=== PATIENT | male | born 1945 | race Caucasian/White ===

== ENCOUNTER 2020-02-24 16:42 | Inpatient (IN) | payer OTHER ==
[~2020-02-24] VITALS: Ht 182.9 cm; Wt 102.0 kg
[2020-02-24] VITALS (22 sets, daily range): BP systolic 70–98; BP diastolic 17–46
[2020-02-24] MEDS ORDERED: DEXTROSE 50% SYRINGE 50 ML IV ONE (16:52)
[2020-02-24] MEDS ORDERED: MIDAZOLAM HCL 5 MG/ML-1ML VIAL IV ONE (17:00)
[2020-02-24] MEDS ORDERED: DEXTROSE (50%) 50ML SYRG IV ONE ×2 (17:00→18:15)
[2020-02-24] MEDS ORDERED: NOREPINEPHRINE 8 MG/250ML KIT 250 ML IV ONE ×2 (17:05→22:07)
[2020-02-24] MEDS ORDERED: MIDAZOLAM HCL 1MG/1ML-2 ML VIAL ONE (17:05)
[2020-02-24] MEDS ORDERED: MIDAZOLAM DRIP 50 mg/50mL 50 ML IV ONE (17:05)
[2020-02-24] MEDS: NOREPINEPHRINE 8 MG/250ML KIT 250 ML IV SCH ×2 (17:13→23:02)
[2020-02-24] MEDS: MIDAZOLAM DRIP 50 mg/50mL 50 ML IV SCH ×3 (17:13→23:03)
[2020-02-24 17:16] LABS: Basophils # (auto) 0 10 ^3/uL (0-0.2); Basophils % (auto) 0.3 % (0.0-2.0); Eosinophils # (auto) 0 10 ^3/uL (0-0.8); Eosinophils % (auto) 0.1 % (0.0-7.0); Lymphocytes # (auto) 0.8 10 ^3/uL (0.4-5.4); Lymphocytes % (auto) 10.9 % (10.0-50.0); Monocytes # (auto) 0.5 10 ^3/uL (0-1.3); Monocytes % (auto) 6.1 % (0.0-12.0); Neutrophils % (auto) 82.6 % (37.0-80.0); White Blood Cell 7.4 10^3/uL (4.4-10.8)
[2020-02-24 17:17] LABS: Hematocrit 12.4 % (41.0-53.0); Mean Corpuscular Hemoglobin 30.5 pg (28.0-32.0); Mean Corpuscular Hgb Conc. 27.1 g/dL (32.0-36.0); Mean Corpuscular Volume 112.4 fL (80.0-100.0); Neutrophils # (auto) 6.1 10 ^3/uL (1.6-8.6)
[2020-02-24 17:19] LABS: Urine Bacteria NONE SEEN /hpf (None Seen); Urine Blood Negative /uL (Negative); Urine Hyaline Cast MOD /lpf (0 - 2); Urine Mucus FEW (None Seen); Urine Specific Gravity 1.016 (1.001-1.035); Urine WBC 11 /hpf (0 - 3)
[2020-02-24 17:22] LABS: Red Cell Distribution Width 21.5 % (11.8-14.3)
[2020-02-24 17:26] LABS: Hemoglobin 3.4 g/dL (13.5-17.5); Platelet Count (auto) 9 10^3/uL (140-450)
[2020-02-24 17:29] LABS: Albumin 1.7 g/dL (3.4-5.0); Calcium 8.3 mg/dL (8.5-10.1)
[2020-02-24 17:30] LABS: Alcohol, Urine < 3.0 mg/dL (0-10); Amphetamine Screen, Urine NEGATIVE (NEGATIVE); Barbiturate Scree,Urine NEGATIVE (NEGATIVE); Benzodiazephine Screen, Urine NEGATIVE (NEGATIVE); Cannabinoid Screen, Urine NEGATIVE (NEGATIVE); Cocaine Screen, Urine NEGATIVE (NEGATIVE); Opiate Scree,Urine POSITIVE (NEGATIVE); Phencyclidine Screen, Urine NEGATIVE (NEGATIVE)
[2020-02-24 17:34] LABS: BUN/Creatinine Ratio 32.8; Bilirubin, Total 2.6 mg/dL (0.2-1.0)
[2020-02-24 17:47] LABS: Potassium 5.8 mmol/L (3.5-5.1)
[2020-02-24] MEDS ORDERED: SODIUM BICARBONATE 8.4 % INJ 50ML VIAL IV ONE (18:00)
[2020-02-24] MEDS ORDERED: VANCOMYCIN PER PHARMACY 0 MG IV SCH (18:15)
[2020-02-24] MEDS ORDERED: InsuLIN REG 1unit/0.01ml Soln (100units/ml) SC ONE (18:15)
[2020-02-24] MEDS ORDERED: CALCIUM GLUC 4.65meq/50ml D5AE 50 ML IV ONE (18:15)
[2020-02-24] MEDS ORDERED: MORPHINE SULF INJ 2 MG/ML SYRINGE 1ML IV PRN (18:15)
[2020-02-24] MEDS ORDERED: NITROGLYCERIN 0.4 MG SL TAB SL PRN (18:15)
[2020-02-24] MEDS ORDERED: ALBUTEROL SULF 2.5 MG/0.5ML(0.5%) NEB SOLN NEB ONE (18:15)
[2020-02-24] MEDS ORDERED: SODIUM BICARBONATE 8.4% INJ 50ML SYRINGE IV ONE ×3 (18:15)
--- NOTE | 2020-02-24 18:20 | NUR ---
AT BEDSIDE. RN IS TO ADMINISTER 3 AMP BICARP PUSH. WILL WAIT X1 HR FOR FOLLOW UP ABG.
[2020-02-24] MEDS ORDERED: VANCOMYCIN 1GM/250ML 250 ML IV ONE (19:00)
[2020-02-24] MEDS: SODIUM BICARBONATE 50ML VIAL 150 ML in D5W 5% 1,000 ML IV SCH (19:06)
[2020-02-24] MEDS: PHENYLEPHRINE IV 250 ML IV SCH ×3 (19:06→23:02)
[2020-02-24 19:11] LABS: Lactate Dehydrogenase 187 U/L (87-241)
[2020-02-24 19:15] LABS: CRP High Sensitivity > 19.0 mg/dL (< 0.3)
--- NOTE | 2020-02-24 21:43 | NUR ---
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 Patient transfered to bed, connected to mechanical ventilator by therapist, SUJEYM at bedside. Patient connected to ICU monitoring, weighed by renuka, oriented to [facility], primary RN, unit, ventilator and sedation. NOTE: PT TO UNIT ON LEVOPHED GTT 30 MCG/MIN, AND PHENYLEPHRINE AT 180 MCG/MIN, VERSED 10 MG/HR. PT OBSERVED TO BE BUCKING VENT. SEDATION INCREASED SEE IV SPREADSHEET. OGT IN PLACE. CONNECTED TO LIS. 1300 ML BLACK COFFEE GROUND DRAINAGE OBTAINED WITHIN FIRST 30 MIN. PT WITH ORAL BLEEDING, AND BLEEDING FROM NARES. R. FEM TLC IN PLACE. ALL PORTS PATENT. L. EJ IN PLACE WITH D5 WITH THREE AMPS NAHCO3 INFUSING AT 100 ML/HR. 20G IV TO L. HAND, 20 G IV TO R. FOOT. ALL SITES B&P. PT WITH BRUISING OBSERVED TO L. CHEST AND CONTRERAS UPPER EXTREMITIES. VIRGEN TO GRAVITY DRAINING CLEAR YELLOW URINE. BED IN LOWEST LOCKED POSITION. SIDE RAILS UP X 2. PT IN FULL VIEW OF RN STATION. PT ON RESPIRATORY PRECUATION FOR RULE OUT COVID. PROPER PPE IN USE. WILL CONTINUE TO MONITOR.
[2020-02-24] MEDS: PANTOPRAZOLE 40 MG/10 ML VIAL INJ IV SCH (22:00)
[2020-02-25] VITALS (109 sets, daily range): BP systolic 93–157; BP diastolic 48–85
[2020-02-25] MEDS: PHENYLEPHRINE IV 250 ML IV SCH (01:51)
[2020-02-25] MEDS: NOREPINEPHRINE 8 MG/250ML KIT 250 ML IV SCH ×4 (02:30→20:00)
--- NOTE | 2020-02-25 04:30 | NUR ---
FAMILY CONTACT PT ABIGAIL CALLED UNIT. PASSWORD ESTABLISHED. UPDATED ABIGAIL REGARDING PT CONDITION AND PLAN OF CARE. PT MOSTLY GUINEAN SPEAKING. GUINEAN SPEAKING RN ALSO SPOKE WITH ABIGAIL. ALL QUESTIONS AND CONCERNS ADDRESSED.
--- NOTE | 2020-02-25 05:00 | NUR ---
Patient bathe/linen change Patient given complete bath. Skin integrity assessed for any changes. Linens changed. Patient repositioned for comfort.
[2020-02-25] MEDS: SODIUM BICARBONATE 50ML VIAL 150 ML in D5W 5% 1,000 ML IV SCH (05:45)
--- NOTE | 2020-02-25 07:05 | NUR ---
REPORT RECEIVED FROM DRAPERY EXAMINER NURSE. PATIENT RESTING IN BED INTUBATED AND SEDATED. RESPIRATIONS EVEN BUT LABORED DUE TO HIGH RESPIRATORY RATE ON VENTILATOR. BLEEDING NOTED TO BE COMING FROM MOUTH AND GAUZE PLACED IN BILATERAL NARES WITH NOTED CLOTS. BED IN LOW POSITION. WILL CONTINUE TO MONITOR.
[2020-02-25] MEDS: MIDAZOLAM DRIP 50 mg/50mL 50 ML IV SCH (08:10)
[2020-02-25 08:34] LABS: Basophils # (auto) 0 10 ^3/uL (0-0.2); Eosinophils # (auto) 0 10 ^3/uL (0-0.8); Hematocrit 25.7 % (41.0-53.0); Lymphocytes # (auto) 0.4 10 ^3/uL (0.4-5.4); Lymphocytes % (auto) 8.3 % (10.0-50.0); Mean Corpuscular Hemoglobin 30.4 pg (28.0-32.0); Mean Corpuscular Hgb Conc. 34.8 g/dL (32.0-36.0); Mean Corpuscular Volume 87.4 fL (80.0-100.0); Monocytes # (auto) 0.1 10 ^3/uL (0-1.3); Monocytes % (auto) 2.7 % (0.0-12.0); Nucleated Red Blood Cells % 0.2 %; Red Blood Cells 2.94 10^6/uL (4.5-5.90); Red Cell Distribution Width 15.6 % (11.8-14.3); White Blood Cell 4.6 10^3/uL (4.4-10.8)
[2020-02-25] MEDS: cefTRIAXone 1GM/50ML D5W 50 ML IV SCH (08:34)
[2020-02-25 08:37] LABS: Platelet Count (auto) 10 10^3/uL (140-450)
--- NOTE | 2020-02-25 08:40 | NUR ---
DR LIND AT BEDSIDE TO ASSESS PATIENT AND DISCUSS PLAN OF CARE. PER MD TRANSFUSE 2 UNITS PLATELETS AND REDRAW LABS WHEN COMPLETED. MD ADJUSTED VENTILATOR SETTINGS, ORDERS NOTED IN CHART. PER MD HEMATOLOGY CONSULT DUE TO THROMBOCYTOPENIA. ALL ORDERS PLACED.
--- NOTE | 2020-02-25 08:45 | NUR ---
INSECTICIDE SPRAYER AT BEDSIDE
[2020-02-25 08:54] LABS: Albumin 2.1 g/dL (3.4-5.0); Calcium 7.6 mg/dL (8.5-10.1); Potassium 4.2 mmol/L (3.5-5.1)
[2020-02-25 08:58] LABS: BUN/Creatinine Ratio 39.8; Bilirubin, Total 3.6 mg/dL (0.2-1.0); Total Protein 5.5 g/dL (6.4-8.2)
--- NOTE | 2020-02-25 09:13 | NUR ---
DR BUCIO AT BEDSIDE TO ASSESS PATIENT AND DISCUSS PLAN OF CARE. PER MD MONITOR AT THIS TIME AND TRANSFUSE ORDERED. PER MD START PATIENT ON OCTREOTIDE DRIP, ORDERS NOTED. MD SPOKE TO NIECE WITH ON PHONE WELL, NIECE TRANSLATED FOR . MD DISCUSSED PLAN OF CARE AND CRITICAL STATE OF PATIENT. ALL QUESTIONS AND CONCERNS ADDRESSED AT THIS TIME.
[2020-02-25] MEDS ORDERED: OCTREOTIDE ACETATE 100 MCG in SODIUM CHL 0.9% 50 ML IV ONE (09:15)
[2020-02-25] MEDS ORDERED: PROPOFOL 100 ML IV SCH (09:23)
[2020-02-25 09:42] LABS: INR 1.18 (0.9-1.15)
--- NOTE | 2020-02-25 09:45 | NUR ---
PATIENT TRANSFERRED TO CT VIA BED CONNECTED TO PORTABLE VENTILATOR AND MONITOR. NO SIGNS OF DISTRESS NOTED AT THIS TIME. VITAL SIGNS STABLE. ACCOMPANIED BY RADIOLOGY NURSE.
--- NOTE | 2020-02-25 10:07 | NUR ---
PATIENT BACK FROM CT CONNECTED TO BEDSIDE MONITORS AND VENTILATOR. VITAL SIGNS STABLE. WILL CONTINUE TO MONITOR.
[2020-02-25] MEDS: PANTOPRAZOLE 40 MG/10 ML VIAL INJ IV SCH ×2 (10:29→22:00)
[2020-02-25] MEDS: fentaNYL Drip 2500mCg/250mlNS 250 ML IV SCH (10:38)
--- NOTE | 2020-02-25 10:41 | NUR ---
DR SALAZAR AT BEDSIDE TO ASSESS PATIENT AND DISCUSS PLAN OF CARE. ALL ORDERS NOTED IN CHART.
[2020-02-25] MEDS: OCTREOTIDE ACETATE 500 MCG in SODIUM CHL 0.9% 99 ML IV SCH ×2 (10:53→20:00)
--- NOTE | 2020-02-25 11:25 | NUR ---
PAGED DR SALAZAR IN REGARDS TO PATIENT BLOOD GLUCOSE LEVELS BEING ELEVATED AND NO BLOOD SUGAR CHECKS. AWAITING CALL BACK.
--- NOTE | 2020-02-25 11:26 | NUR ---
SPOKE TO DR SALAZAR ABOUT BLOOD GLUCOSE LEVELS. PER MD START PATIENT ON MILD SLIDING SCALE Q6H. ALL ORDERS NOTED IN CHART.
[2020-02-25] MEDS ORDERED: DEXTROSE (50%) 50ML SYRG IV PRN (11:30)
[2020-02-25] MEDS: ACCU-CHEK COMFORT CURVE STRIP VI SCH ×2 (11:41→18:00)
[2020-02-25] MEDS: InsuLIN REG 1unit/0.01ml Soln (100units/ml) SC SCH ×2 (11:41→18:00)
--- NOTE | 2020-02-25 12:30 | NUR ---
SPOKE TO DR LIND, PER MD STOP SODIUM BICARBONATE DRIP. ORDERS NOTED IN CHART.
[2020-02-25] MEDS ORDERED: VANCOMYCIN 1GM/250ML 250 ML IV ONE (13:00)
--- NOTE | 2020-02-25 13:06 | NUR ---
MD AT BEDSIDE DR HARTMANN, HEMATOLOGY, AT BEDSIDE TO EXAMINE PATIENT. UPDATED ON PATIENT STATUS AND RECENT LABS. PER MD REDRAW CBC AFTER PLATELETS COMPLETED. ALL ORDERS NOTED IN CHART.
[2020-02-25] MEDS ORDERED: methylPREDNISolone SOD SUCC 125 MG/2 ML VL IV SCH (14:00)
[2020-02-25] MEDS: methylPREDNISolone SOD SUCC 125 MG/2 ML VL IV SCH ×2 (14:00→22:00)
--- NOTE | 2020-02-25 14:52 | NUR ---
PAGED DR KOHLER FOR CONSULT. AWAITING CALL BACK.
--- NOTE | 2020-02-25 15:21 | NUR ---
DR KOHLER CALLED AND REVIEWED PATIENT HISTORY AND CURRENT LAB VALUES. PER MD START PATIENT ON ALBUMIN 25% 100ML Q8HR FOR 24HOURS, ADMINISTER 20MG LASIX IVP X1 DOSE ONCE CURRENT PLATELETS COMPLETED, ADMINISTER 40MG LASIX IVP X1 DOSE IF PATIENT URINE OUTPUT HOURLY DECREASES TO LESS THAN 30ML/HR. SEND URINE SODIUM AND CREATININE. PER MD NO MAINTENANCE FLUIDS AT THIS TIME. ALL ORDERS NOTED IN CHART.
[2020-02-25] MEDS ORDERED: FUROSEMIDE 40 MG/4 ML VIAL IV PRN (15:30)
[2020-02-25] MEDS: ALBUMIN 25% 100 ML IV SCH (16:36)
[2020-02-25] MEDS ORDERED: FUROSEMIDE 20 MG/2 ML VIAL IV NR (17:00)
[2020-02-25 17:54] LABS: Creatinine, Urine 35 mg/dL (30.0-125.0); Sodium Urine 15 mmol/L (40-220)
--- NOTE | 2020-02-25 19:30 | NUR ---
Opening Shift Note: Patient is vented/sedated. ET size 8.0/22 @ lip. Settings: AC rate 24, vT 470, PEEP 5, and FiO2 40%. Neuro: pupils are 2/3 mm in size/reactive to light; flaccid extremities; + cough/gag. Cardio: Afib 110s-150s; SBP 100s-130s; +2 pitting edema in left arm and BLE; all pulses palpable. Blood present in bilateral nostrils and mouth. GI: left nare NGT to LIS: dark red output; distended soft abdomen. : ballard inserted on 02/24/20 for strict I/O: yellow/sed/slight hematuria. Skin: generalized bruising present; no open wounds noted. IVs: left hand 20 g IID inserted on 02/24/20; left 20 g EJ to KVO inserted on 02/24/20; right femoral TLC running Levophed @ 24; Fentanyl @ 50; Sandostatin @ 10 ml/hr inserted on 02/24/20. Pending a nephrology consultation for CKD/TRISHA/hyperkalemia. CBC to be drawn at 1999 to determine possible blood product transfusion. Will continue to round/reposition/perform oral care prn.
[2020-02-25 20:04] LABS: Basophils # (auto) 0 10 ^3/uL (0-0.2); Eosinophils # (auto) 0 10 ^3/uL (0-0.8); Lymphocytes # (auto) 0.1 10 ^3/uL (0.4-5.4); Monocytes # (auto) 0.1 10 ^3/uL (0-1.3); Neutrophils # (auto) 4.7 10 ^3/uL (1.6-8.6); Red Cell Distribution Width 16.7 % (11.8-14.3)
[2020-02-25 20:05] LABS: Eosinophils % (auto) 0.7 % (0.0-7.0); Hemoglobin 7.7 g/dL (13.5-17.5); Lymphocytes % (auto) 2.3 % (10.0-50.0); Mean Corpuscular Hemoglobin 30.7 pg (28.0-32.0); Mean Corpuscular Hgb Conc. 34.9 g/dL (32.0-36.0); Mean Corpuscular Volume 87.9 fL (80.0-100.0); Monocytes % (auto) 2.7 % (0.0-12.0); Neutrophils % (auto) 94.3 % (37.0-80.0); Nucleated Red Blood Cells % 0.2 %; Platelet Count (auto) 60 10^3/uL (140-450)
--- NOTE | 2020-02-25 21:00 | NUR ---
Page sent to production or plant engineer hospitalist: Current hgb is 7.7 from 9.0; platelet count is 60 from 10. HR sustaining Afib new onset in 110s-150s. New orders received for cardiology consultation in AM; metoprolol prn 5 mg Q6H prn for HR greater than 140. Labs already ordered for AM.
[2020-02-26] VITALS (105 sets, daily range): BP systolic 85–150; BP diastolic 49–86
[2020-02-26] MEDS: InsuLIN REG 1unit/0.01ml Soln (100units/ml) SC SCH ×4 (00:45→19:41)
[2020-02-26] MEDS: PHENYLEPHRINE IV 250 ML IV SCH ×2 (03:25→11:45)
--- NOTE | 2020-02-26 04:00 | NUR ---
Patient bathe/linen change Patient given complete CHG bath. Skin integrity assessed for any changes. Linens and gown changed. Patient repositioned for comfort.
[2020-02-26 04:58] LABS: Basophils # (auto) 0 10 ^3/uL (0-0.2); Basophils % (auto) 0.1 % (0.0-2.0); Eosinophils # (auto) 0 10 ^3/uL (0-0.8); Lymphocytes # (auto) 0.2 10 ^3/uL (0.4-5.4); Lymphocytes % (auto) 5.7 % (10.0-50.0); Monocytes # (auto) 0.1 10 ^3/uL (0-1.3); Neutrophils # (auto) 3.2 10 ^3/uL (1.6-8.6)
[2020-02-26 05:02] LABS: Eosinophils % (auto) 0.2 % (0.0-7.0); Hematocrit 20.1 % (41.0-53.0); Mean Corpuscular Hemoglobin 30.5 pg (28.0-32.0); Mean Corpuscular Hgb Conc. 34.2 g/dL (32.0-36.0); Mean Corpuscular Volume 89.2 fL (80.0-100.0); Nucleated Red Blood Cells % 0.1 %; Platelet Count (auto) 44 10^3/uL (140-450); Red Blood Cells 2.26 10^6/uL (4.5-5.90); Red Cell Distribution Width 17.3 % (11.8-14.3); White Blood Cell 3.5 10^3/uL (4.4-10.8)
[2020-02-26] MEDS: OCTREOTIDE ACETATE 500 MCG in SODIUM CHL 0.9% 99 ML IV SCH ×2 (05:07→16:57)
[2020-02-26] MEDS: ACCU-CHEK COMFORT CURVE STRIP VI SCH ×4 (05:08→19:41)
[2020-02-26 05:12] LABS: Albumin 2.5 g/dL (3.4-5.0); Calcium 7.3 mg/dL (8.5-10.1); Magnesium 2.8 mg/dL (1.6-2.6); Potassium 3.7 mmol/L (3.5-5.1)
[2020-02-26 05:18] LABS: BUN/Creatinine Ratio 37.8; Bilirubin, Total 3.6 mg/dL (0.2-1.0); Total Protein 5.7 g/dL (6.4-8.2)
[2020-02-26 05:40] LABS: Hemoglobin 6.9 g/dL (13.5-17.5)
[2020-02-26 05:43] LABS: INR 1.18 (0.9-1.15); Partial Thromboplastin Time 30.2 sec (23.64-32.05)
--- NOTE | 2020-02-26 06:00 | NUR ---
Page sent to data power consultant hospitalist in regards to low hgb 6.9. New order received from Kaylee data power consultant hospitalist for one unit of PRBCs.
--- NOTE | 2020-02-26 07:37 | NUR ---
DR YIN AT BEDSIDE TO ASSESS PATIENT. ALL ORDERS NOTED IN CHART.
[2020-02-26] MEDS: ALBUMIN 25% 100 ML IV SCH ×2 (08:04)
[2020-02-26] MEDS: fentaNYL Drip 2500mCg/250mlNS 250 ML IV SCH ×2 (09:23→21:55)
--- NOTE | 2020-02-26 09:42 | NUR ---
DR BUCIO AT BEDSIDE TO ASSESS PATIENT AND DISCUSS PLAN OF CARE. MD MADE AWARE OF PATIENTS BLOOD DRAINING FRO NARES AND ORALLY WELL DARK BLACK TO DARK RED COMING FROM NGT. REVIEWED LABS WITH MD. PER MD ADMINISTER I UNIT PLATELETS. ALL ORDER NOTED IN CHART.
[2020-02-26] MEDS: methylPREDNISolone SOD SUCC 125 MG/2 ML VL IV SCH ×2 (09:57→22:21)
[2020-02-26] MEDS: PANTOPRAZOLE 40 MG/10 ML VIAL INJ IV SCH ×2 (09:57→22:20)
[2020-02-26] MEDS: cefTRIAXone 1GM/50ML D5W 50 ML IV SCH (09:58)
--- NOTE | 2020-02-26 10:08 | NUR ---
SALVAGE DIVER AT BEDSIDE.
--- NOTE | 2020-02-26 10:43 | NUR ---
UNIT OF PRBC STARTED. VITAL SIGNS STABLE WITH NO NOTED ADVERSE REACTIONS. WILL CONTINUE TO MONITOR.
--- NOTE | 2020-02-26 10:45 | NUR ---
DR ILND AT BEDSIDE TO ASSESS PATIENT AND DISCUSS PLAN OF CARE. PER MD SEDATION VACATION, WHICH SEDATIONS ARE ALL OFF AT THIS TIME. PER MD CPAP WHEN AWAKE.
--- NOTE | 2020-02-26 10:45 | NUR ---
ELECTROENCEPHALOGRAM EEG COMPLETED AT BEDSIDE. PRIMARY RN MIHAI RING.
--- NOTE | 2020-02-26 12:10 | NUR ---
WOUND CARE NOTE: IN TO SEE PATIENT AT THIS TIME PER WOUND CARE CONSULT REQUEST. PATIENT WAS ADMITTED TO [facility] WITH DIAGNOSIS OF ACUTE RESPIRATORY FAILURE. CURRENT LEA SCORE IS 12. HE IS INTUBATED, SEDATED. PATIENT HAS NO CURRENT WOUND/SKIN INTEGRITY ISSUES AT THIS TIME. SKIN/WOUND CARE PLAN IMPLEMENTED. PATIENT WOULD BENEFIT FROM FREQUENT TURN SCHEDULE Q 2 HOURS, PRN CONDITION PERMITS, WITH PRESSURE REDISTRIBUTION USING PILLOWS/WEDGES, BID/PRN APPLICATION WITH MOISTURE BARRIER CREAM, OPTIFOAM GENTLE SACRAL DRESSING PREVENTATIVE, SKIN/WOUND CARE PLAN, DIETARY CONSULT FOR LOW LEA, CONTINUED MONITORING BY WOUND CARE TEAM.
[2020-02-26] MEDS ORDERED: PHYTONADIONE (VIT K)10 MG/ML 1ML VIAL SUBCUT ONE (12:15)
--- NOTE | 2020-02-26 12:19 | NUR ---
DR SALAZAR AT BEDSIDE TO ASSESS PATIENT AND DISCUSS PLAN OF CARE. PER MD START PATIENT ON VITAMIN K SQ DAILY. ALL ORDERS NOTED IN CHART. Addendum: 02/26/20 at 1236 by Akosua Rodriguez RN MD MADE AWARE OF PATIENTS ELEVATED BLOOD SUGARS. PER MD INCREASE SLIDING SCALE TO MODERATE
[2020-02-26] MEDS ORDERED: DEXTROSE (50%) 50ML SYRG IV PRN ×2 (12:30→18:15)
[2020-02-26] MEDS ORDERED: VANCOMYCIN 1GM/250ML 250 ML IV ONE (13:00)
--- NOTE | 2020-02-26 13:49 | NUR ---
DR HARTMANN AT BEDSIDE TO ASSESS PATIENT AND DISCUSS PLAN OF CARE. ALL ORDERS NOTED IN CHART.
[2020-02-26] MEDS ORDERED: FUROSEMIDE 20 MG/2 ML VIAL IV ONE (14:00)
--- NOTE | 2020-02-26 14:47 | NUR ---
DR PARRA AT BEDSIDE TO ASSESS PATIENT AND DISCUSS PLAN OF CARE. MD MADE AWARE OF ELEVATED TROPONIN. NO NEW ORDERS AT THIS TIME.
--- NOTE | 2020-02-26 15:10 | NUR ---
Respiratory note: INCREASED PT'S FIO2 TO 100% PT KEEPS DESATURATING. RN AT BEDSIDE AND AWARE OF CHANGES.
[2020-02-26 17:23] LABS: Basophils # (auto) 0 10 ^3/uL (0-0.2); Eosinophils # (auto) 0 10 ^3/uL (0-0.8); Hematocrit 22.5 % (41.0-53.0); Hemoglobin 7.6 g/dL (13.5-17.5); Mean Corpuscular Hemoglobin 29.5 pg (28.0-32.0); Monocytes # (auto) 0.1 10 ^3/uL (0-1.3)
[2020-02-26 17:25] LABS: Basophils % (auto) 0.3 % (0.0-2.0); Lymphocytes # (auto) 0.3 10 ^3/uL (0.4-5.4); Lymphocytes % (auto) 11.9 % (10.0-50.0); Mean Corpuscular Hgb Conc. 33.7 g/dL (32.0-36.0); Mean Corpuscular Volume 87.5 fL (80.0-100.0); Monocytes % (auto) 6.6 % (0.0-12.0); Neutrophils # (auto) 1.7 10 ^3/uL (1.6-8.6); Neutrophils % (auto) 80.2 % (37.0-80.0); Nucleated Red Blood Cells % 0.5 %; Platelet Count (auto) 31 10^3/uL (140-450); Red Blood Cells 2.57 10^6/uL (4.5-5.90); Red Cell Distribution Width 17.3 % (11.8-14.3); White Blood Cell 2.1 10^3/uL (4.4-10.8)
--- NOTE | 2020-02-26 17:58 | NUR ---
SPOKE TO DR CYR WHO WAS ON ICU UNIT. MD EVALUATED LAB RESULTS AND PATIENT. PER MD ADMINISTER 1 UNIT PLATELETS. ALL ORDERS NOTED IN CHART.
[2020-02-26] MEDS ORDERED: ACCU-CHEK COMFORT CURVE STRIP VI SCH (18:00)
[2020-02-26] MEDS ORDERED: InsuLIN REG 1unit/0.01ml Soln (100units/ml) SC SCH (18:00)
--- NOTE | 2020-02-26 18:09 | NUR ---
PAGED DR CYR TO REPORT PATIENTS ELEVATED BLOOD SUGAR OF 406 WITH REPEAT OF 401. AWAITING CALL BACK.
[2020-02-26] MEDS ORDERED: INSULIN LANTUS (GLARGINE) 1 /0.01ml (100units/ml) SC ONE (18:15)
[2020-02-26] MEDS ORDERED: InsuLIN REG 1unit/0.01ml Soln (100units/ml) IV ONE (18:15)
--- NOTE | 2020-02-26 18:15 | NUR ---
SPOKE TO DR CYR TO INFORM OF ELEVATED BLOOD SUGARS. PER MD ADMINISTER LANTUS 15UNITS SQ BID FIRST DOSE NOW, REGULAR INSULIN 10 [address] NOW [address] PL[address] PATIENT ON Q4H BLOOD SUGAR CHECKS. ALL ORDERS NOTED IN CHART.
--- NOTE | 2020-02-26 20:00 | NUR ---
OPEN ASSUMED CARE OF MALE PT ORALLY INTUBATED. PT OFF SEDATION AT THIS TIME. OPENS EYES DURING TURNING OTHERWISE NON RESPONSIVE. AFIB ON HAND BANDER. LEVOPHED GTT INFUSING AT 2 MCG/MIN. OGT IN PLACE TO LIS DRAINING DARK RED TINGED COFFEE GROUND DRAINAGE. PLACEMENT VERIFIED. PT ON SANDOSTATIN GTT AT 50 MCG/HR. PT WITH SOME ORAL BLEEDING. GENTLE ORAL CARE PROVIDED. PT WITH BRUISING TO CONTRERAS UPPER EXTREMITIES AND L. LATERA CHEST. NO SKIN BREAKS OBSERVED. L. EJ 20 G B&P. R. FEM TLC IN PLACE ALL PORTS PATENT. 20 G IV TO L. HAND S/L. ALL DRESSINGS CDI. VIRGEN TO GRAVITY DRAINING STRAW COLORED URINE. CONTRERAS SCD'S IN PLACE. NO INDICATION OF PAIN OBSERVED. PILLOWS USED TO OFFLOAD BONY PROMINENCES AND CONTRERAS HEELS. HOB ELEVATED 40 DEGREES. BED IN LOWEST LOCKED POSITION. SIDE RAILS UP X 2. PT IN FULL VIEW OF RN STATION. WILL CONTINUE TO MONITOR.
--- NOTE | 2020-02-26 20:30 | NUR ---
FAMILY CALL PT NIECE CALLED WITH PT'S FOR UPDATE ON PT CONDITION. AFTER PASSWORD FOR PHONE GIVEN. UPDATE PROVIDED. ALL QUESTIONS AND CONCERNS ADDRESSED.
[2020-02-27] VITALS (109 sets, daily range): BP systolic 93–127; BP diastolic 55–84
[2020-02-27] MEDS: ACCU-CHEK COMFORT CURVE STRIP VI SCH ×6 (00:19→20:09)
[2020-02-27] MEDS: InsuLIN REG 1unit/0.01ml Soln (100units/ml) SC SCH ×6 (00:20→20:09)
--- NOTE | 2020-02-27 03:00 | NUR ---
Patient bathe/linen change Patient given complete bath. Skin integrity assessed for any changes. Linens changed. Patient repositioned for comfort.
[2020-02-27] MEDS: OCTREOTIDE ACETATE 500 MCG in SODIUM CHL 0.9% 99 ML IV SCH ×3 (03:20→20:10)
[2020-02-27 04:39] LABS: Basophils # (auto) 0 10 ^3/uL (0-0.2); Eosinophils # (auto) 0 10 ^3/uL (0-0.8); Lymphocytes # (auto) 0.3 10 ^3/uL (0.4-5.4); Monocytes # (auto) 0.1 10 ^3/uL (0-1.3); Neutrophils # (auto) 1.4 10 ^3/uL (1.6-8.6)
[2020-02-27 04:41] LABS: Basophils % (auto) 0.4 % (0.0-2.0); Eosinophils % (auto) 0.7 % (0.0-7.0); Hematocrit 21.1 % (41.0-53.0); Hemoglobin 7.2 g/dL (13.5-17.5); Lymphocytes % (auto) 15.1 % (10.0-50.0); Mean Corpuscular Hemoglobin 29.9 pg (28.0-32.0); Mean Corpuscular Hgb Conc. 34.2 g/dL (32.0-36.0); Mean Corpuscular Volume 87.5 fL (80.0-100.0); Monocytes % (auto) 5.3 % (0.0-12.0); Neutrophils % (auto) 78.5 % (37.0-80.0); Nucleated Red Blood Cells % 2.4 %; Platelet Count (auto) 36 10^3/uL (140-450); Red Blood Cells 2.42 10^6/uL (4.5-5.90); Red Cell Distribution Width 17.5 % (11.8-14.3)
[2020-02-27 04:44] LABS: White Blood Cell 1.8 10^3/uL (4.4-10.8)
[2020-02-27 05:01] LABS: Potassium 3.5 mmol/L (3.5-5.1)
[2020-02-27 05:05] LABS: INR 1.18 (0.9-1.15)
[2020-02-27 05:07] LABS: Albumin 2.4 g/dL (3.4-5.0); BUN/Creatinine Ratio 44.7; Bilirubin, Total 2.6 mg/dL (0.2-1.0); Calcium 7.8 mg/dL (8.5-10.1); Total Protein 5.9 g/dL (6.4-8.2)
[2020-02-27] MEDS: INSULIN LANTUS (GLARGINE) 1 /0.01ml (100units/ml) SC SCH ×2 (06:16→20:12)
--- NOTE | 2020-02-27 07:00 | NUR ---
REPORT RECEIVED FROM SCHOOL BUS AIDE NURSE. PATIENT RESTING IN BED INTUBATED AND LIGHTLY SEDATED. RESPIRATIONS EVEN AND UNLABORED. NO SIGNS OF ACUTE DISTRESS NOTED. BED IN LOW POSITION. WILL CONTINUE TO MONITOR.
--- NOTE | 2020-02-27 07:57 | NUR ---
DR PARRA AT BEDSIDE TO ASSESS PATIENT AND DISCUSS PLAN OF CARE. PER MD WILL SIGN OFF CASE AT THIS TIME. RECONSULT IF NEEDED.
[2020-02-27] MEDS: cefTRIAXone 1GM/50ML D5W 50 ML IV SCH (08:25)
[2020-02-27] MEDS ORDERED: PHYTONADIONE (VIT K)10 MG/ML 1ML VIAL SUBCUT SCH (10:00)
[2020-02-27] MEDS: methylPREDNISolone SOD SUCC 125 MG/2 ML VL IV SCH ×2 (10:21→20:11)
[2020-02-27] MEDS: PANTOPRAZOLE 40 MG/10 ML VIAL INJ IV SCH ×2 (10:21→20:10)
--- NOTE | 2020-02-27 11:36 | NUR ---
DR BUCIO AT BEDSIDE TO ASSESS PATIENT AND DISCUSS PLAN OF CARE. PER MD ADMINISTER 1 UNIT OF PRBC. ALL ORDERS NOTED IN CHART.
[2020-02-27] MEDS ORDERED: VANCOMYCIN 1GM/250ML 250 ML IV ONE (12:00)
--- NOTE | 2020-02-27 12:00 | NUR ---
DR BEAVERS AT BEDSIDE TO ASSESS PATIENT AND DISCUSS PLAN OF CARE.ALL ORDERS NOTED IN CHART. RESPIRATORY THERAPIST MADE AWARE OF VENTILATOR CHANGES ORDERED BY .
--- NOTE | 2020-02-27 12:01 | NUR ---
Nutrition Assessment/consult Notes please see attached link for complete assessment Est Energy needs ABW 92 [id number] kcals (23-25 kcal/kgBW),Est Protein needs: 73-92 gms/day (0.8-1.0 gm/kgBW) Will continue to monitor and reassess prn. Addendum: 02/27/20 at [address] Amended: Links added.
--- NOTE | 2020-02-27 13:00 | NUR ---
DR Jessica DARBY AT BEDSIDE TO ASSESS PATIENT AND DISCUSS PLAN OF CARE. ALL ORDERS NOTED IN CHART.
--- NOTE | 2020-02-27 13:28 | NUR ---
STARTED UNIT OF PRBC. VITAL SIGNS STABLE, WILL CONTINUE TO MONITOR.
--- NOTE | 2020-02-27 16:00 | NUR ---
TRANSFUSION COMPLETED WITH NO NOTED ADVERSE REACTIONS.
[2020-02-27] MEDS: fentaNYL Drip 2500mCg/250mlNS 250 ML IV SCH (16:24)
[2020-02-27] MEDS: NOREPINEPHRINE 8 MG/250ML KIT 250 ML IV SCH (17:15)
--- NOTE | 2020-02-27 19:45 | NUR ---
Opening Shift Note: Patient is vented/sedated. ET size 8.0/22 @ lip. Settings: AC rate 18, vT 470, PEEP 8, and FiO2 60%. Neuro: pupils are 3 mm in size/reactive to light; flaccid extremities; + cough/gag. Cardio: Afib 50s-70s; SBP 100s-120s; +2 pitting edema in left arm and BLE; all pulses palpable but weak. Blood present mouth. GI: left nare NGT to LIS: dark red output; distended soft abdomen. : ballard inserted on 02/24/20 for strict I/O: yellow/sed/slight hematuria. Skin: generalized bruising present; no open wounds noted. IVs: left hand 20 g IID inserted on 02/24/20; left 20 g EJ to KVO inserted on 02/24/20; right femoral TLC running Sandostatin @ 10 ml/hr inserted on 02/24/20. CBC to be drawn at 2000 to determine possible blood product transfusion. Will continue to round/reposition/perform oral care prn.
[2020-02-27 20:35] LABS: Basophils # (auto) 0 10 ^3/uL (0-0.2); Eosinophils # (auto) 0 10 ^3/uL (0-0.8); Lymphocytes # (auto) 0.3 10 ^3/uL (0.4-5.4); Mean Corpuscular Volume 88.1 fL (80.0-100.0); Monocytes # (auto) 0.1 10 ^3/uL (0-1.3); Platelet Count (auto) 33 10^3/uL (140-450); White Blood Cell 2.1 10^3/uL (4.4-10.8)
[2020-02-27 20:38] LABS: Basophils % (auto) 0.3 % (0.0-2.0); Hematocrit 23.7 % (41.0-53.0); Mean Corpuscular Hemoglobin 29.8 pg (28.0-32.0); Mean Corpuscular Hgb Conc. 33.8 g/dL (32.0-36.0); Monocytes % (auto) 3.5 % (0.0-12.0); Neutrophils # (auto) 1.7 10 ^3/uL (1.6-8.6); Neutrophils % (auto) 82.2 % (37.0-80.0); Nucleated Red Blood Cells % 0.2 %; Red Blood Cells 2.69 10^6/uL (4.5-5.90)
--- NOTE | 2020-02-27 22:00 | NUR ---
RT paged related to patient biting on ET tube. Bite block pichadro placed by RT to prevent tube biting.
[2020-02-28] VITALS (102 sets, daily range): BP systolic 100–174; BP diastolic 61–101
[2020-02-28] MEDS: InsuLIN REG 1unit/0.01ml Soln (100units/ml) SC SCH ×6 (00:21→20:18)
[2020-02-28] MEDS: fentaNYL Drip 2500mCg/250mlNS 250 ML IV SCH (03:00)
--- NOTE | 2020-02-28 03:00 | NUR ---
Fentanyl restarted related to patient's high RR, HR, and blood pressure. Patient is also not pulling volume on ventilator. RR in low 30s, BP 174/100, and HR AFib RVR 130s-150s sustaining. Metoprolol prn given per order and Fentanyl restarted at 25 mcg per order. Will continue to monitor patient status.
[2020-02-28] MEDS: METOPROLOL TARTRATE 1MG/1ML-5ML VIAL IV PRN (03:06)
[2020-02-28] MEDS: ACCU-CHEK COMFORT CURVE STRIP VI SCH ×6 (03:33→20:00)
--- NOTE | 2020-02-28 03:56 | NUR ---
Patient bathe/linen change Patient given complete CHG bath. Skin integrity assessed for any changes. Linens and gown changed. All tubing changed per 72 hour protocol. Patient repositioned for comfort.
[2020-02-28 04:10] LABS: BUN/Creatinine Ratio 50.2; Calcium 8.4 mg/dL (8.5-10.1)
[2020-02-28 05:40] LABS: Basophils # (auto) 0 10 ^3/uL (0-0.2); Eosinophils # (auto) 0 10 ^3/uL (0-0.8); Lymphocytes # (auto) 0.3 10 ^3/uL (0.4-5.4); Mean Corpuscular Hgb Conc. 33.8 g/dL (32.0-36.0); Mean Corpuscular Volume 88.3 fL (80.0-100.0); Monocytes # (auto) 0.1 10 ^3/uL (0-1.3); Neutrophils # (auto) 2.3 10 ^3/uL (1.6-8.6); White Blood Cell 2.7 10^3/uL (4.4-10.8)
[2020-02-28 05:42] LABS: Basophils % (auto) 0.3 % (0.0-2.0); Hemoglobin 9.5 g/dL (13.5-17.5); Mean Corpuscular Hemoglobin 29.8 pg (28.0-32.0); Monocytes % (auto) 2.7 % (0.0-12.0); Nucleated Red Blood Cells % 1.3 %; Platelet Count (auto) 25 10^3/uL (140-450); Red Blood Cells 3.17 10^6/uL (4.5-5.90)
[2020-02-28] MEDS: INSULIN LANTUS (GLARGINE) 1 /0.01ml (100units/ml) SC SCH ×2 (06:06→20:34)
--- NOTE | 2020-02-28 08:00 | NUR ---
AM ASSESSMENT COMPLETED. ORAL CARE RENDERED, REPOSITIONED FOR COMFORT. PT ON LIVER CIRRHOSIS, SKIN JAUNDICE, PT SKIN ANASARCA, MONITOR ALARMS VERIFIED.
[2020-02-28] MEDS: OCTREOTIDE ACETATE 500 MCG in SODIUM CHL 0.9% 99 ML IV SCH ×2 (08:44→20:18)
[2020-02-28] MEDS: cefTRIAXone 1GM/50ML D5W 50 ML IV SCH (08:54)
--- NOTE | 2020-02-28 09:00 | NUR ---
DR. Suyapa DARBY ROUNDING ON PT. HE WANTS PT TO HAVE A RENAL CONSULTATION. AND HE WILL SPEAK TO PT'S PRIMARY MD ABOUT SPEAKING TO PT'S FAMILY ABOUT PLACING PT ON HOSPICE D/T PT'S CONDITION.
--- NOTE | 2020-02-28 09:40 | NUR ---
PT'S CALLED I UPDATED HER ON PT'S CONDITION, WE REVIEWED CODE STATUS. SHE DECIDED TO MAKE PT, NO CPR BUT CONTINUE ALL CARE FOR NOW. PT'S WISHES WERE TO AT HOME. SHE WOULD LIKE TO HAVE PT'S SON MARKIE COME FROM [facility] TO SEE HIS DAD AND PLACE PT ON HOSPICE CARE. PT'S ALSO NEEDS A NOTE FOR HER WORK SHE HAS BEEN CALLING OFF FOR FOUR DAYS SINCE PT WAS HOSPITALIZED. NAMES OF CORRECT SPELLING WERE ATTACHED TO PT'S FRONT CHART FOR DR. SALAZAR.
[2020-02-28] MEDS: PANTOPRAZOLE 40 MG/10 ML VIAL INJ IV SCH ×2 (10:50→20:33)
[2020-02-28] MEDS: methylPREDNISolone SOD SUCC 125 MG/2 ML VL IV SCH ×2 (10:50→20:33)
--- NOTE | 2020-02-28 11:14 | NUR ---
DR. BUCIO ROUNDING ON PT NO NEW ORDERS RECEIVED. UPDATED ON PT'S CONDITION.
--- NOTE | 2020-02-28 16:02 | NUR ---
VENT CHANGES MADE PER DR BEAVERS ORDERS. PT IS NOW ON AC RR 14, VT 470, PEEP 8, 55% FIO2.
--- NOTE | 2020-02-28 18:00 | NUR ---
URINE COLLECTED AND SENT TO LAB. PT STARTED ON IVF R=X BY DR. KRAMER , CONSULTING RETAIL WAREHOUSE SUPERVISOR.
[2020-02-28] MEDS: D5W 5% 1,000 ML IV SCH (18:26)
--- NOTE | 2020-02-28 20:00 | NUR ---
Opening Shift Note: Patient is vented/sedated. ET size 8.0/22 @ lip. Settings: AC rate 14, vT 470, PEEP 8, and FiO2 55%. Neuro: pupils are 3 mm in size/reactive to light but sluggish; flaccid extremities; + cough/gag. Cardio: Afib 60s-70s; SBP 100s-120s; +2 pitting edema in left arm and BLE; all pulses palpable but weak. Blood present mouth. GI: left nare NGT to LIS: dark red output; distended soft abdomen. : ballard inserted on 02/24/20 for strict I/O: yellow/sed/slight hematuria. Skin: generalized bruising present; no open wounds noted; new blister to left thigh ZACHARIAH. IVs: left hand 20 g IID inserted on 02/24/20; left 20 g EJ to KVO inserted on 02/24/20; right femoral TLC running Sandostatin @ 10 ml/hr and D5W @ 100 ml/hr inserted on 02/24/20. Will continue to round/reposition/perform oral care prn.
[2020-02-28] MEDS: NOREPINEPHRINE 8 MG/250ML KIT 250 ML IV SCH (20:17)
--- NOTE | 2020-02-28 20:30 | NUR ---
[facility] Call: Case management telemarketing representative, Javed, called for update on patient status. According to telemarketing representative, all [facility] are not accepting ICU transfer tonight and because the patient is still bleeding, the patient is not stable per their protocol for any transfers. Was informed that case management will follow up in the AM on the patient's status.
[2020-02-29] VITALS (92 sets, daily range): BP systolic 127–181; BP diastolic 74–126
[2020-02-29] MEDS: InsuLIN REG 1unit/0.01ml Soln (100units/ml) SC SCH ×7 (00:43→23:54)
[2020-02-29] MEDS: OCTREOTIDE ACETATE 500 MCG in SODIUM CHL 0.9% 99 ML IV SCH ×3 (04:44→23:15)
[2020-02-29] MEDS: D5W 5% 1,000 ML IV SCH (04:44)
[2020-02-29] MEDS: INSULIN LANTUS (GLARGINE) 1 /0.01ml (100units/ml) SC SCH ×2 (04:46→21:52)
[2020-02-29] MEDS: ACCU-CHEK COMFORT CURVE STRIP VI SCH ×7 (04:46→23:54)
--- NOTE | 2020-02-29 05:00 | NUR ---
Patient bathe/linen change Patient given complete CHG bath. Skin integrity assessed for any changes. Linens and gown changed. Patient repositioned for comfort. Peripheral IV's removed related to 4-day protocol.
[2020-02-29 05:19] LABS: Urine Bacteria FEW /hpf (None Seen); Urine Blood 2+ /uL (Negative); Urine Specific Gravity 1.018 (1.001-1.035); Urine WBC 5 /hpf (0 - 3)
[2020-02-29 05:27] LABS: INR 1.13 (0.9-1.15)
[2020-02-29 05:30] LABS: Protein, Urine 18.6 mg/dL (0.0-11.9)
--- NOTE | 2020-02-29 05:30 | NUR ---
Patient responding to simple questions: knods head yes and no; sustains eye contact when verbally stimulated. Still on 150 mcg of fentanyl.
[2020-02-29 05:34] LABS: Basophils # (auto) 0 10 ^3/uL (0-0.2); Basophils % (auto) 0.2 % (0.0-2.0); Eosinophils # (auto) 0 10 ^3/uL (0-0.8); Hematocrit 26.2 % (41.0-53.0); Hemoglobin 8.7 g/dL (13.5-17.5); Lymphocytes # (auto) 0.3 10 ^3/uL (0.4-5.4); Lymphocytes % (auto) 10.2 % (10.0-50.0); Mean Corpuscular Hemoglobin 29.9 pg (28.0-32.0); Mean Corpuscular Hgb Conc. 33.1 g/dL (32.0-36.0); Mean Corpuscular Volume 90.3 fL (80.0-100.0); Monocytes # (auto) 0 10 ^3/uL (0-1.3); Monocytes % (auto) 1.2 % (0.0-12.0); Neutrophils # (auto) 2.7 10 ^3/uL (1.6-8.6); Neutrophils % (auto) 88.4 % (37.0-80.0); Nucleated Red Blood Cells % 0.7 %; Platelet Count (auto) 115 10^3/uL (140-450); Red Cell Distribution Width 17.7 % (11.8-14.3)
[2020-02-29 07:36] LABS: Albumin 2.4 g/dL (3.4-5.0); Calcium 8.3 mg/dL (8.5-10.1); Potassium 4.5 mmol/L (3.5-5.1)
[2020-02-29 07:41] LABS: BUN/Creatinine Ratio 55.1; Bilirubin, Total 3.1 mg/dL (0.2-1.0); Phosphorus 6.8 mg/dL (2.5-4.90); Total Protein 6.2 g/dL (6.4-8.2); Uric Acid 5.4 mg/dL (3.5-7.2)
[2020-02-29] MEDS: cefTRIAXone 1GM/50ML D5W 50 ML IV SCH (08:49)
--- NOTE | 2020-02-29 09:50 | NUR ---
PATIENT'S SELINA CANO PHONES - GIVEN UPDATE ON PATIENT CONDITION - VERBALIZED UNDERSTANDING.
--- NOTE | 2020-02-29 10:10 | NUR ---
DR BEAVERS VISITS AND EXAMINES PATIENT - ORDERS RECEIVED AND VENT CHANGES MADE.
--- NOTE | 2020-02-29 10:45 | NUR ---
DR BUCIO VISITS AND EXAMINES PATIENT - NO NEW ORDERS RECEIVED.
[2020-02-29] MEDS ORDERED: VANCOMYCIN 1GM/250ML 250 ML IV ONE (11:00)
--- NOTE | 2020-02-29 11:00 | NUR ---
PATIENT'S PHONES - GIVEN UPDATE ON PATIENT CONDITION.
[2020-02-29] MEDS: methylPREDNISolone SOD SUCC 125 MG/2 ML VL IV SCH ×2 (11:08→21:51)
[2020-02-29] MEDS: PANTOPRAZOLE 40 MG/10 ML VIAL INJ IV SCH ×2 (11:08→21:51)
--- NOTE | 2020-02-29 11:25 | NUR ---
DR DUNN VISITS AND EXAMINES PATIENT - ORDERS RECEIVED.
--- NOTE | 2020-02-29 11:30 | NUR ---
DR SALAZAR VISITS AND EXAMINES PATIENT - NO ORDERS RECEIVED.
[2020-02-29] MEDS: SOD CHL 0.45% 1,000 ML IV SCH (12:10)
--- NOTE | 2020-02-29 12:51 | NUR ---
TITRATING FENTANYL PER ORDERS. Addendum: 02/29/20 at 1255 by Shreya De Paz RN Amended: Links added.
[2020-02-29 12:56] LABS: Protein, Urine 20.4 mg/dL (0.0-11.9)
--- NOTE | 2020-02-29 12:56 | NUR ---
DR YIN VISITS AND EXAMINES PATIENT - NO ORDERS RECEIVED.
--- NOTE | 2020-02-29 14:01 | NUR ---
assessment Patient is a 74 year old male who is on a vent. I have left a message for Kristy patients emergency contact to return my call for my assessment. Patients post discharge needs to be determined after extubation and prior to discharge. Addendum: 02/29/20 at 1404 by Aidee BERRIOS Amended: Links added.
[2020-02-29 14:36] LABS: Hemoglobin 8.7 g/dL (13.5-17.5)
[2020-02-29 14:38] LABS: Hematocrit 27.3 % (41.0-53.0)
--- NOTE | 2020-02-29 15:09 | NUR ---
Nutrition Followup Notes Pt wt is 102.6 kg Pt is sedated, intubated on mechanical vent with no relatives at bedside when rounded this morning. Per RN, no plans for nutrition support d/t pt is to be terminally weaned. Est Energy needs ABW 92 [id number] kcals (23-25 kcal/kgBW),Est Protein needs: 73-92 gms/day (0.8-1.0 gm/kgBW) Will continue to monitor and reassess prn. LABS: NA 152 H, CL 117 H, BUN 125 H, CR 2.27 H, GFR 30 L, GLUC 224 H, CA 8.3 L, ALB 2.4 L GI: Last BM noted on 02/18 per RN doc. BS: 12 high risk. Please refer to wound assessment report for full details. PES: Problem Altered nutrition related lab values r/t current chronic medical condition aeb elev RFT hyperglycemia, mod hypoalb Problem Impaired swallowing r/t current medical condition aeb pt`s intubated sedated with order of NPO Comments 1) advance diet as medically feasible 2) consider alternate nutrition support if pt NPO > 48 hrs. If EN is choice of route consider Glucerna @ 75 ml/hr per MD approval 3) refer to CDE on DC 4) continue current plan of care
[2020-02-29] MEDS: fentaNYL Drip 2500mCg/250mlNS 250 ML IV SCH (15:22)
[2020-02-29] MEDS: ceFAZolin 1GM/50ML 50 ML IV SCH ×2 (15:22→21:51)
--- NOTE | 2020-02-29 16:05 | NUR ---
1555 02/29/20 I called [facility] and spoke with performance analyst Rocio requested to speak with assigned corrections caseworker regarding continued authorization. Per Rocio the assigned corrections caseworker is Nelson and he is not available right now. Rocio stated that they did received the clinical notes for today and the corrections caseworker was still reviewing all clinical notes. Rocio stated that at the end of the day the corrections caseworker would fax over a letter with authorization or denial.
--- NOTE | 2020-02-29 19:30 | NUR ---
Opening Shift Note Received pt on mechanical ventilator on fentanyl gtt. Pt's eyes were wide open and was able to nod head yes or no to questions. No signs of movement in extremities. Full assessment done, see interventions. Bed locked in lowest position. All alarms on and audible.
--- NOTE | 2020-02-29 21:30 | NUR ---
HTN paged for htn. New order received for hydralazine 10 mg q 6hr prn fro systolic greater than 160
--- NOTE | 2020-02-29 22:20 | NUR ---
Family Received phone call from . password provided by and update given
[2020-03-01] VITALS (91 sets, daily range): BP systolic 124–199; BP diastolic 67–125
--- NOTE | 2020-03-01 03:30 | NUR ---
Cares Pt given bed bath and partial linen change. pt tolerated well.
[2020-03-01] MEDS: InsuLIN REG 1unit/0.01ml Soln (100units/ml) SC SCH ×5 (04:00→20:00)
[2020-03-01] MEDS: ACCU-CHEK COMFORT CURVE STRIP VI SCH ×5 (04:00→20:00)
[2020-03-01] MEDS: OCTREOTIDE ACETATE 500 MCG in SODIUM CHL 0.9% 99 ML IV SCH ×3 (04:15→13:00)
[2020-03-01 04:38] LABS: Basophils # (auto) 0 10 ^3/uL (0-0.2); Basophils % (auto) 0.2 % (0.0-2.0); Eosinophils # (auto) 0 10 ^3/uL (0-0.8); Lymphocytes # (auto) 0.4 10 ^3/uL (0.4-5.4); Lymphocytes % (auto) 8.2 % (10.0-50.0); Monocytes # (auto) 0 10 ^3/uL (0-1.3); Monocytes % (auto) 0.9 % (0.0-12.0); Neutrophils # (auto) 4.3 10 ^3/uL (1.6-8.6); Neutrophils % (auto) 90.7 % (37.0-80.0); White Blood Cell 4.7 10^3/uL (4.4-10.8)
[2020-03-01 04:40] LABS: Hematocrit 27.3 % (41.0-53.0); Mean Corpuscular Hemoglobin 29.8 pg (28.0-32.0); Mean Corpuscular Hgb Conc. 32.8 g/dL (32.0-36.0); Mean Corpuscular Volume 90.9 fL (80.0-100.0); Nucleated Red Blood Cells % 0.4 %; Red Cell Distribution Width 17.5 % (11.8-14.3)
[2020-03-01 04:44] LABS: INR 1.18 (0.9-1.15); Platelet Count (auto) 17 10^3/uL (140-450)
[2020-03-01 04:46] LABS: Albumin 2.4 g/dL (3.4-5.0); Calcium 8.4 mg/dL (8.5-10.1); Potassium 4.4 mmol/L (3.5-5.1)
[2020-03-01] MEDS: SOD CHL 0.45% 1,000 ML IV SCH ×3 (04:50→12:00)
[2020-03-01 04:51] LABS: BUN/Creatinine Ratio 58.7; Bilirubin, Total 3.9 mg/dL (0.2-1.0); Total Protein 6.2 g/dL (6.4-8.2)
[2020-03-01] MEDS: hydrALAZINE HCL 20 MG/ML VL IV PRN ×3 (05:30→18:35)
[2020-03-01] MEDS: ceFAZolin 1GM/50ML 50 ML IV SCH ×3 (06:20→21:20)
[2020-03-01] MEDS: INSULIN LANTUS (GLARGINE) 1 /0.01ml (100units/ml) SC SCH ×2 (06:48→21:21)
--- NOTE | 2020-03-01 08:05 | NUR ---
DR YIN AT BEDSIDE DISCUSSED PATIENTS STATUS AND PLAN OF CARE
--- NOTE | 2020-03-01 09:05 | NUR ---
SEDATION VACATION HELD- PATIENTS HEART RATE INCREASES WITH ANY STIMULI OR DECREASING OF SEDATION Addendum: 03/01/20 at 0906 by Iona Meyer RN Amended: Links added.
--- NOTE | 2020-03-01 09:20 | NUR ---
DR BEAVERS AT BEDSIDE DISCUSSED PATIENTS STATUS, RECEIVED NEW ORDERS
[2020-03-01] MEDS: fentaNYL Drip 2500mCg/250mlNS 250 ML IV SCH ×2 (09:23→16:04)
--- NOTE | 2020-03-01 09:30 | NUR ---
FAMILY CALL PATIENTS NEIGHBOR ROBERT CALLED WITH PATIENTS ABIGAIL AND SISTER ON SPEAKER PHONE. ROBERT TRANSLATED FOR PATIENTS FAMILY. UPDATED ON PATIENTS CURRENT STATUS. ADDRESSED CONCERNS. NO FURTHER QUESTIONS
--- NOTE | 2020-03-01 09:38 | NUR ---
PATIENTS DAUGHTER ARCADIO CALLED PROVIDED PASSWORD. UPDATED ON CURRENT STATUS. ADDRESSED CONCERNS
--- NOTE | 2020-03-01 09:49 | NUR ---
re-assessment The phone number in the chart for Kristy steele of [employer] is the wrong number. Addendum: 03/01/20 at 0950 by Aidee BERRIOS Amended: Links added.
[2020-03-01] MEDS: PANTOPRAZOLE 40 MG/10 ML VIAL INJ IV SCH ×2 (10:23→21:21)
[2020-03-01] MEDS: methylPREDNISolone SOD SUCC 125 MG/2 ML VL IV SCH ×2 (10:24→21:21)
--- NOTE | 2020-03-01 10:50 | NUR ---
DR BUCIO AT BEDSIDE NO NEW ORDERS AT THIS TIME
--- NOTE | 2020-03-01 11:27 | NUR ---
DR DUNN AT BEDSIDE DISCUSSED PATIENTS STATUS, NEW ORDERS PLACED
--- NOTE | 2020-03-01 12:20 | NUR ---
FAILED CPAP TRIAL Attempted CPAP trial per Dr. Urbano's orders. Pt's HR increased to 150's, RR 10, with low tidal volumes 100-200ml. Placed back on AC mode on previous ordered settings. RN at bedside and aware. Lung sounds diminished crackles, suctioned with lavage for large thick yellow secretions. Alarms verified and audible. Will continue to monitor.
[2020-03-01] MEDS: METOPROLOL TARTRATE 1MG/1ML-5ML VIAL IV PRN (12:21)
--- NOTE | 2020-03-01 14:27 | NUR ---
DR SALAZAR AT BEDSIDE DISCUSSED PATIENTS STATUS AND RECEIVED NEW ORDERS.
[2020-03-01] MEDS ORDERED: FUROSEMIDE 20 MG/2 ML VIAL ONE (16:08)
[2020-03-01] MEDS ORDERED: FUROSEMIDE 20 MG/2 ML VIAL IV ONE (16:15)
--- NOTE | 2020-03-01 19:30 | NUR ---
Opening Shift Note Received pt on mechanical ventilator on fentanyl gtt. Pt's eyes were wide open and was able to nod head yes or no to questions. VS unstable when pt is stimulated; HR goes up to 130's and B/P goes up. Full assessment done, see interventions. Bed locked in lowest position. All alarms on and audible.
--- NOTE | 2020-03-01 21:30 | NUR ---
Family phoned and asked for update on pt's status. All questions and concerns addressed at this time.
--- NOTE | 2020-03-01 22:32 | NUR ---
Received call from lab Pt has positive blood cultures for gram positive cocci. Paged line production cook hospitalist New order for vancomycin per pharmacy protocol.
[2020-03-01] MEDS ORDERED: VANCOMYCIN PER PHARMACY 0 MG IV SCH (22:45)
[2020-03-01] MEDS ORDERED: VANCOMYCIN 1GM/250ML 250 ML IV ONE (23:00)
[2020-03-02] VITALS (103 sets, daily range): BP systolic 124–217; BP diastolic 70–124
[2020-03-02] MEDS: InsuLIN REG 1unit/0.01ml Soln (100units/ml) SC SCH ×6 (00:08→21:27)
[2020-03-02] MEDS: ACCU-CHEK COMFORT CURVE STRIP VI SCH ×6 (00:08→21:28)
[2020-03-02] MEDS: SOD CHL 0.45% 1,000 ML IV SCH ×4 (03:30→21:28)
--- NOTE | 2020-03-02 04:16 | NUR ---
Cares Pt given complete bed bath and full linen change. Skin integrity assessed for any changes; None noted. Pt's hr and b/p went up as it does when stimulated. otherwise pt tolerated.
[2020-03-02] MEDS: fentaNYL Drip 2500mCg/250mlNS 250 ML IV SCH ×2 (04:50→16:09)
[2020-03-02 04:53] LABS: Basophils # (auto) 0 10 ^3/uL (0-0.2); Basophils % (auto) 0.1 % (0.0-2.0); Eosinophils # (auto) 0 10 ^3/uL (0-0.8); Hemoglobin 9.4 g/dL (13.5-17.5); Lymphocytes # (auto) 0.3 10 ^3/uL (0.4-5.4); Monocytes # (auto) 0.1 10 ^3/uL (0-1.3); Neutrophils # (auto) 6.9 10 ^3/uL (1.6-8.6); White Blood Cell 7.3 10^3/uL (4.4-10.8)
[2020-03-02 04:57] LABS: Hematocrit 28.9 % (41.0-53.0); Lymphocytes % (auto) 4.5 % (10.0-50.0); Mean Corpuscular Hgb Conc. 32.5 g/dL (32.0-36.0); Mean Corpuscular Volume 92.5 fL (80.0-100.0); Monocytes % (auto) 0.9 % (0.0-12.0); Neutrophils % (auto) 94.5 % (37.0-80.0); Nucleated Red Blood Cells % 0.3 %; Red Blood Cells 3.12 10^6/uL (4.5-5.90); Red Cell Distribution Width 18.5 % (11.8-14.3)
[2020-03-02] MEDS: OCTREOTIDE ACETATE 500 MCG in SODIUM CHL 0.9% 99 ML IV SCH ×4 (05:15→21:28)
[2020-03-02] MEDS: ceFAZolin 1GM/50ML 50 ML IV SCH ×3 (05:18→21:27)
[2020-03-02 05:24] LABS: Platelet Count (auto) 13 10^3/uL (140-450)
[2020-03-02 05:50] LABS: INR 1.14 (0.9-1.15)
[2020-03-02 05:56] LABS: Potassium 4.4 mmol/L (3.5-5.1)
[2020-03-02 06:12] LABS: Albumin 2.4 g/dL (3.4-5.0); BUN/Creatinine Ratio 57.9; Bilirubin, Total 5.4 mg/dL (0.2-1.0); Calcium 8.2 mg/dL (8.5-10.1); Total Protein 6.3 g/dL (6.4-8.2)
[2020-03-02] MEDS: INSULIN LANTUS (GLARGINE) 1 /0.01ml (100units/ml) SC SCH ×2 (06:28→21:27)
--- NOTE | 2020-03-02 08:40 | NUR ---
PATIENTS DAUGHTER ARCADIO CALLED FOR UPDATE PROVIDED PASSWORD. DISCUSSED PATIENTS STATUS. OBTAINED HER CELL PHONE NUMBER [phone]
--- NOTE | 2020-03-02 09:07 | NUR ---
SEDATION VACATION HELD- NOT HEMODYNAMICALLY STABLE WHEN SEDATION IS DECREASED. PATIENT ABLE TO ANSWER YES/NO QUESTIONS. Addendum: 03/02/20 at 0908 by Iona Meyer RN Amended: Links added.
--- NOTE | 2020-03-02 09:27 | NUR ---
FAMILY CALL PATIENTS FRIEND ROBERT AND CALLED FOR UPDATE (ON SPEAKER PHONE) PROVIDED PASSWORD. UPDATED ON STATUS AND ADDRESSED CONCERNS
[2020-03-02] MEDS: PANTOPRAZOLE 40 MG/10 ML VIAL INJ IV SCH ×2 (10:00→21:27)
[2020-03-02] MEDS ORDERED: LABETALOL HCL 5 MG/ML 4ML SYRINGE IV PRN (10:15)
[2020-03-02] MEDS ORDERED: FUROSEMIDE 20 MG/2 ML VIAL IV ONE (10:15)
--- NOTE | 2020-03-02 10:20 | NUR ---
DR SALAZAR AT BEDSIDE DISCUSSED PATIENTS STATUS AND PLAN OF CARE. PROVIDED MD WITH DAUGHTERS CELL PHONE NUMBER FOR UPDATE. NEW ORDERS RECEIVED
--- NOTE | 2020-03-02 10:27 | NUR ---
2 NOTES WRITTEN AT FAMILIES REQUEST, COPY MADE AND PLACED IN CHART. 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 CRIMPING MACHINE OPERATOR FOR METAL WILL NOTIFY RN AND WE CAN TAKE TO CRIMPING MACHINE OPERATOR FOR METAL AT THAT TIME
--- NOTE | 2020-03-02 11:00 | NUR ---
DR DUNN AT BEDSIDE DISCUSSED PATIENTS STATUS, NO NEW ORDERS
--- NOTE | 2020-03-02 11:28 | NUR ---
DR BUCIO AT BEDSIDE DISCUSSED PATIENTS STATUS, CLEARNick FOR TRANSFER FROM GI STANDPOINT. WILL NOTIFY PRIMARY HOSPITALIST
--- NOTE | 2020-03-02 13:00 | NUR ---
DR BEAVERS AT BEDSIDE DISCUSSED PATIENTS STATUS, NO NEW ORDERS AT THIS TIME
--- NOTE | 2020-03-02 13:52 | NUR ---
Nutrition Followup Notes Pt wt is 102.0 kg Pt is sedated, intubated on mechanical vent with no relatives at bedside when rounded this morning. Per RN, no plans for nutrition support, pt is tentatively scheduled for D/C to alternate facility per MD doc. Will continue to closely monitor pertinent labs, PO intake and skin status prn. Will followup in 2-3 days. Est Energy needs ABW 92 [id number] kcals (23-25 kcal/kgBW),Est Protein needs: 73-92 gms/day (0.8-1.0 gm/kgBW) Will continue to monitor and reassess prn. LABS: BUN 121 H, CR 2.09 H, GFR 33 L, GLUC 125 H, CA 8.3 L, ALB 2.4 L GI: No BM noted today. Last BM noted on 02/18 per RN doc. BS: 13 mod risk. Please refer to wound assessment report for full details. PES: Problem Altered nutrition related lab values r/t current chronic medical condition aeb elev RFT hyperglycemia, mod hypoalb Problem Impaired swallowing r/t current medical condition aeb pt`s intubated sedated with order of NPO Comments 1) advance diet as medically feasible 2) consider alternate nutrition support if pt NPO > 48 hrs. If EN is choice of route consider Glucerna @ 75 ml/hr per MD approval 3) refer to CDE on DC 4) continue current plan of care
[2020-03-02] MEDS ORDERED: levoFLOXacin 750MG 150 ML IV ONE (14:00)
--- NOTE | 2020-03-02 14:41 | NUR ---
MIDLINE RN AT BEDSIDE TO ASSESS FOR MIDLINE PLACEMENT
[2020-03-02] MEDS ORDERED: DEXTROSE (50%) 50ML SYRG IV PRN (14:45)
--- NOTE | 2020-03-02 15:04 | NUR ---
1445 03/02/20 faxed to [facility] transfer order, face sheet, current clinical notes, labs, meds, H/P, notice regarding post-stabilization care. Contacted [facility] complex case manager Javed who confirmed receipt of all documents faxed. Per Javed both [place] ICU locations ([facility]) close to patient's home are still on hold and not taking any new patients. Javed stated that current authorization [id number] has been extended.
--- NOTE | 2020-03-02 15:16 | NUR ---
PATIENTS , ABIGAIL CAME TO [facility] TO [employer] NOTES RN PROVIDED HER WITH BOTH NOTES THAT SHE REQUESTED. ALSO INFORMED OF POTENTIAL TRANSFER TO [facility] IF [facility] ICU BED AVAILABLE. SHE IS AGREEABLE TO TRANSFER
--- NOTE | 2020-03-02 15:19 | NUR ---
Midline Placement: Patient educated on need for midline placement. All risks and benefits explained and all questions and concerns addresses prior to procedure. 18g/10cm midline inserted via LEFT BRACHIAL vein using Ultrasound. Sterile technique utilized. Blood return obtained from lumen and flushed easily with NS using proper technique. Midline secured with saline lock; biodisc and occlusive dressing applied. Primary RN notified. Midline lot # [id number].
--- NOTE | 2020-03-02 15:20 | NUR ---
Second Midline Placement: Patient educated on need for midline placement. All risks and benefits explained and all questions and concerns addresses prior to procedure. 18CM, 4FR midline inserted via RIGHT BASILIC vein using Ultrasound. Sterile technique utilized. Blood return obtained from THE lumen and flushed easily with NS using proper technique. Midline secured with saline lock; biodisc and occlusive dressing applied. Primary RN notified. Midline lot # [id number].
--- NOTE | 2020-03-02 19:30 | NUR ---
Opening Shift Note Received pt on mechanical ventilator on fentanyl gtt. Pt's eyes spontaneously open and able to nod head yes or no to questions. Full assessment done, see interventions. Bed locked in lowest position. All alarms on and audible.
[2020-03-02] MEDS: hydrALAZINE HCL 20 MG/ML VL IV PRN (21:31)
[2020-03-03] VITALS (88 sets, daily range): BP systolic 103–174; BP diastolic 43–99
--- NOTE | 2020-03-03 03:00 | NUR ---
Cares pt given chg wipe bath skin integrity assessed for any changes none noted. oral care rendered. HR and BP elevated upon stimulation
[2020-03-03] MEDS: fentaNYL Drip 2500mCg/250mlNS 250 ML IV SCH ×2 (04:08→15:30)
[2020-03-03 04:31] LABS: Hematocrit 27.2 % (41.0-53.0); Hemoglobin 8.8 g/dL (13.5-17.5); Mean Corpuscular Hgb Conc. 32.2 g/dL (32.0-36.0); Mean Corpuscular Volume 92.9 fL (80.0-100.0); Platelet Count (auto) 26 10^3/uL (140-450); Red Blood Cells 2.93 10^6/uL (4.5-5.90)
[2020-03-03 04:57] LABS: Basophils % (auto) 0.4 % (0.0-2.0); Eosinophils % (auto) 0.2 % (0.0-7.0); Lymphocytes % (auto) 7.8 % (10.0-50.0); Neutrophils # (auto) 90.6 10 ^3/uL (1.6-8.6); Neutrophils % (auto) 90.6 % (37.0-80.0); Nucleated Red Blood Cells % 0.3 %; Potassium 4.3 mmol/L (3.5-5.1)
[2020-03-03 04:58] LABS: Basophils # (auto) 0 10 ^3/uL (0-0.2); Eosinophils # (auto) 0 10 ^3/uL (0-0.8); Lymphocytes # (auto) 7.8 10 ^3/uL (0.4-5.4); Monocytes # (auto) 0.1 10 ^3/uL (0-1.3)
[2020-03-03 05:07] LABS: Albumin 2.3 g/dL (3.4-5.0); BUN/Creatinine Ratio 60.9; Bilirubin, Total 6.8 mg/dL (0.2-1.0); Calcium 8.5 mg/dL (8.5-10.1); Total Protein 5.8 g/dL (6.4-8.2)
--- NOTE | 2020-03-03 05:50 | NUR ---
moderate amount of bright red blood suctioned from ET tube
[2020-03-03] MEDS: InsuLIN REG 1unit/0.01ml Soln (100units/ml) SC SCH ×5 (06:03→22:22)
[2020-03-03] MEDS: ceFAZolin 1GM/50ML 50 ML IV SCH ×3 (06:03→22:00)
[2020-03-03] MEDS: ACCU-CHEK COMFORT CURVE STRIP VI SCH ×4 (06:04→22:22)
[2020-03-03] MEDS: OCTREOTIDE ACETATE 500 MCG in SODIUM CHL 0.9% 99 ML IV SCH (06:18)
--- NOTE | 2020-03-03 08:21 | NUR ---
SPOKE WITH DR BEAVERS UPDATED ON STATUS. RECEIVED NEW ORDERS.
--- NOTE | 2020-03-03 08:50 | NUR ---
DR HARTAMNN AT BEDSIDE DISCUSSED PATIENTS STATUS AND PLAN OF CARE, NEW ORDERS PLACED.
--- NOTE | 2020-03-03 09:00 | NUR ---
SEDATION VACATION HELD-NOT APPROPRIATE AT THIS TIME. PATIENT BLEEDING Addendum: 03/03/20 at 1247 by Iona Meyer RN Amended: Links added.
[2020-03-03 09:18] LABS: INR 1.18 (0.9-1.15); Partial Thromboplastin Time 24.6 sec (23.64-32.05)
[2020-03-03] MEDS: SOD CHL 0.45% 1,000 ML IV SCH ×2 (09:39→11:30)
--- NOTE | 2020-03-03 09:53 | NUR ---
PATIENTS SISTER MARGARET CALLED FOR UPDATE PROVIDED PASSWORD. DISCUSSED PATIENTS STATUS. ADDRESSED CONCERNS
[2020-03-03] MEDS ORDERED: levoFLOXacin 750MG 150 ML IV SCH (10:00)
--- NOTE | 2020-03-03 10:26 | NUR ---
DR SALAZAR AT BEDSIDE DISCUSSED PATIENTS STATUS AND PLAN OF CARE. MD TO DISCUSS CASE WITH OTHER SPECIALIST ON CASE
--- NOTE | 2020-03-03 11:00 | NUR ---
DR BEAVERS SPOKE WITH PATIENTS OVER THE PHONE DISCUSSED PATIENTS STATUS IN DETAIL. RECOMMENDED SHE AND IMMEDIATE FAMILY COME TO HOSPITAL TO SEE PATIENT AND DISCUSS FURTHER IN PERSON. SHE AGREED.
[2020-03-03] MEDS: PANTOPRAZOLE 40 MG/10 ML VIAL INJ IV SCH ×2 (12:55→22:22)
--- NOTE | 2020-03-03 12:55 | NUR ---
1250 03/03/20 I faxed transfer order and Notice Regarding Post Stabilization to [facility]-document scanned into [employer]. I faxed today's MD progress notes, CXR, labs, vitals and medication list to [facility].
--- NOTE | 2020-03-03 13:40 | NUR ---
PATIENTS FAMILY ARRIVED AT [facility] RECOMMENDATIONS RN UPDATED THEM AT BEDSIDE
--- NOTE | 2020-03-03 14:56 | NUR ---
5190 03/03/20 I contacted [facility] and spoke with documentation analyst Andreina-requested to speak with the manager of case regarding the transfer order. Per Andreina-the assigned manager of case is Aileen and she is not available right now. Per Andreina they did receive the transfer order. I provided her with contact information for Dr. Post as well as the nurse's station. I faxed the COVID-19 result to [facility] per her request. I asked that Andreina have manager of case Aileen call me regarding the transfer request. I let her know that I am only available until 1630 but that we do have an window installation subcontractorrn call center pageable through the hospital board hammer operator until 1900.
--- NOTE | 2020-03-03 14:56 | NUR ---
DR SALAZAR AT BEDSIDE WITH PATIENTS FAMILY MD SPOKE WITH PATIENTS AND FAMILY AT BEDSIDE TO DISCUSS PATIENTS STATUS. ADDRESSED CONCERNS AND QUESTIONS.
--- NOTE | 2020-03-03 15:20 | NUR ---
DR BUCIO AT BEDSIDE DISCUSSED PATIENTS STATUS WITH PATIENTS AND FAMILY AT BEDSIDE. ANSWERED QUESTIONS AND CONCERNS
--- NOTE | 2020-03-03 15:33 | NUR ---
SPOKE WITH [employer] TEAM LEADER PROVIDED UPDATED STATUS AND CURRENT VITALS. NO BED AVAILABLE AT THIS TIME
--- NOTE | 2020-03-03 16:40 | NUR ---
SPOKE WITH BLOOD BANK REGARDING PENDING PLATELET TRANSFUSION. BLOOD BANK CURRENTLY WAITING ON PLATELETS FROM [facility] [place]
--- NOTE | 2020-03-03 16:48 | NUR ---
PASSWORD CHANGE PATIENTS ABIGAIL REQUESTED PASSWORD CHANGE TO "BLUE". IF ANYONE CALLS AND DOES NOT HAVE A PASSWORD PLEASE REFER THEM TO CALL PATIENTS
--- NOTE | 2020-03-03 19:00 | NUR ---
PATIENTS TSERING MCCLURE AT BEDSIDE, APPROVED BY
--- NOTE | 2020-03-03 19:30 | NUR ---
REPORT RECEIVED AND ASSUMED CARE; SEE INTERVENTIONS FOR ASSESSMENT; VS STABLE AT THIS TIME; SEE IV SPREADSHEET FOR GTTS; PT. HAVING JULIAN BLOOD FROM ETT-SMALL, RED, THIN, SOME CLOTS; AWAITING BLOOD BANK TO OBTAIN PLATELETS TO TRANSFUSE; WILL CONT. TO MONITOR.
--- NOTE | 2020-03-03 19:40 | NUR ---
[facility] CALLED AND PT. TO TRANSFER TO [facility] WITH CRITICAL CARE TEAM; ETA FOR AMBULANCE IS 21:00 [place].
--- NOTE | 2020-03-03 22:00 | NUR ---
[facility] HELD 2/2 TRANSFUSING PLATELETS NOW-CRITICAL CARE TEAM IN ROUTE TO TRANSFER PT. TO [facility]
--- NOTE | 2020-03-03 22:19 | NUR ---
critical care team at bedside to prepare pt. for transfer to [facility].
[2020-03-03] MEDS: INSULIN LANTUS (GLARGINE) 1 /0.01ml (100units/ml) SC SCH (22:23)
--- NOTE | 2020-03-03 22:45 | NUR ---
PLATELET TRANSFUSION NOT ENDED BUT ENDORSED TO CRITICAL CARE TEAM WITH 150ML LEFT OF 500ML; PT. TRANSFERRING TO [facility]
--- NOTE | 2020-03-03 23:23 | NUR ---
PT. OFF THE UNIT WITH CRITICAL CARE TRANSPORT AND TRANSFERRING TO [id number]/ # .
--- NOTE | 2020-03-03 23:35 | NUR ---
CALLED [facility], AND INFORMED THAT PATIENT IS IN-ROUTE TO THEIR FACILITY; S/W DENNIS NELSON # .
== END 2020-03-03 23:50 | disposition short-term general hospital (02) | DRG 870 ==
LOC: ER 16:42 → EDBD 16:42 → ICU WEST 16:43
PROVIDERS: ADMIT Nurse Practitioner Acute Care; ATTEND Internal Medicine
PROC: 5A1955Z Respiratory Ventilation, Greater than 96 Consecutive Hours (ICD-10-PCS; principal; 2020-02-24)
PROC: 0BH17EZ Insertion of Endotracheal Airway into Trachea, Via Natural or Artificial Opening (ICD-10-PCS; 2020-02-24)
PROC: 30233R1 Transfusion of Nonautologous Platelets into Peripheral Vein, Percutaneous Approach (ICD-10-PCS; 2020-02-24)
PROC: 30230N1 Transfusion of Nonautologous Red Blood Cells into Peripheral Vein, Open Approach (ICD-10-PCS; 2020-02-24)
PROC: 30233K1 Transfusion of Nonautologous Frozen Plasma into Peripheral Vein, Percutaneous Approach (ICD-10-PCS; 2020-02-25)
PROC: 05HY33Z Insertion of Infusion Device into Upper Vein, Percutaneous Approach (ICD-10-PCS; 2020-03-02)
PROC: B54NZZZ Ultrasonography of Left Upper Extremity Veins (ICD-10-PCS; 2020-03-02)
DX: A41.9 Sepsis, unspecified organism (principal); G93.41 Metabolic encephalopathy; J96.01 Acute respiratory failure with hypoxia; J18.9 Pneumonia, unspecified organism; E43 Unspecified severe protein-calorie malnutrition; R57.1 Hypovolemic shock; I21.4 Non-ST elevation (NSTEMI) myocardial infarction; N17.0 Acute kidney failure with tubular necrosis; I50.33 Acute on chronic diastolic (congestive) heart failure; R65.21 Severe sepsis with septic shock; D61.818 Other pancytopenia; D68.9 Coagulation defect, unspecified; E87.0 Hyperosmolality and hypernatremia; G93.1 Anoxic brain damage, not elsewhere classified; E87.5 Hyperkalemia; B19.20 Unspecified viral hepatitis C without hepatic coma; K72.90 Hepatic failure, unspecified without coma; K52.9 Noninfective gastroenteritis and colitis, unspecified; Z20.828 Contact with and (suspected) exposure to other viral communicable diseases; E11.42 Type 2 diabetes mellitus with diabetic polyneuropathy; E11.65 Type 2 diabetes mellitus with hyperglycemia; Z66 Do not resuscitate; Z79.4 Long term (current) use of insulin; K70.30 Alcoholic cirrhosis of liver without ascites
CPT/HCPCS: 31500; 36415; 36430; 36600; 51702; 70450; 71045; 71250; 74176; 80048; 80053; 80061; 80202; 80307; 80320; 81001; 82140; 82550; 82570; 82728; 82805; 82962; 83010; 83036; 83605; 83615; 83735; 83880; 84100; 84156; 84300; 84443; 84484; 84550; 85014; 85018; 85025; 85045; 85379; 85384; 85610; 85730; 86141; 86850; 86880; 86900; 86901; 86920; 87040; 87070; 87077; 87081; 87186; 87205; 87804; 87880; 93005; 93306; 94002; 94003; 94640; 95819; 96365; 96372; 96375; 99291; C9113; G0378; J0610; J0690; J0696; J1815; J1956; J2250; J2704; J3430; J3490; P9047